=== PATIENT | male | born 1985 | race Caucasian/White ===

== ENCOUNTER 2016-12-14 14:18 | Emergency (ER) | payer BC ==
[~2016-12-14] VITALS: Ht 190.5 cm; Wt 131.1 kg
[~2016-12-14 14:18] MED LIST: ADVIL200 MG PO; FLONASE16 G1 BOTH NARES; ZANTAC75 M1 PO; ZYRTEC10 M3 PO
[2016-12-14] MEDS ORDERED: PERCOCET 5/31 TABLET PO (15:40)
[2016-12-14 16:07] VITALS: BP 137/78
== END 2016-12-14 16:14 | disposition home or self-care (01) ==
LOC: EME 14:18
DX: R51 Headache (principal); H53.8 Other visual disturbances; R11.2 Nausea with vomiting, unspecified; Z82.49 Family history of ischemic heart disease and other diseases of the circulatory system; Z87.891 Personal history of nicotine dependence
CPT/HCPCS: 70450; 99281; 99284